=== PATIENT | female | born 1950 | race Asian ===

== ENCOUNTER 2016-08-24 18:53 | Inpatient (IN) | payer MEDICAID ==
[~2016-08-24] VITALS: Ht 152.4 cm; Wt 51.5 kg
[2016-08-24 21:22] LABS: BASOPHIL % 0.5 % (0-2); PLATELET COUNT 166 x10^3mcL (130-400); RED CELL DISTRIBUTION WIDTH 12.3 % (11.5-14.5)
[2016-08-24 21:36] LABS: CALCIUM 9.1 mg/dL (8.5-10.1); CARBON DIOXIDE 29.3 mmol/L (21-32); CREATININE SERUM 2.3 mg/dL (0.6-1.0); POTASSIUM SERUM 5.1 mmol/L (3.5-5.1)
[2016-08-24 21:40] LABS: BILIRUBIN TOTAL 0.32 mg/dL (0.20-1.00); PHOSPHOROUS 3.9 mg/dL (2.5-4.9); TOTAL PROTEIN, SERUM 7.1 g/dL (6.4-8.2); URIC ACID 8.4 mg/dL (2.6-6.0)
[2016-08-24 21:41] LABS: ALBUMIN 3.3 g/dL (3.4-5.0)
[2016-08-24 22:02] VITALS: BP 191/95
[2016-08-24 22:13] LABS: CHOLESTEROL/HDL RATIO 5.6; MAGNESIUM 2.1 mg/dL (1.8-2.4)
[2016-08-24 22:20] LABS: FREE T4 1.06 ng/dL (0.76-1.46); FREE THYROXINE INDEX 3.1 ug/dL (1.4-4.5)
[2016-08-24 22:21] LABS: T3 TOTAL 1.05 ng/mL
[2016-08-24 23:40] VITALS: BP 133/86
[2016-08-25 05:51] VITALS: BP 111/63
[2016-08-25 06:18] LABS: BASOPHIL % 0.5 % (0-2); PLATELET COUNT 152 x10^3mcL (130-400); RED CELL DISTRIBUTION WIDTH 12.4 % (11.5-14.5)
[2016-08-25 06:43] LABS: CALCIUM 8.7 mg/dL (8.5-10.1); CARBON DIOXIDE 28.7 mmol/L (21-32); CREATININE SERUM 2.3 mg/dL (0.6-1.0); POTASSIUM SERUM 4.5 mmol/L (3.5-5.1)
[2016-08-25 06:45] LABS: microscopic required? YES; urine erythrocyte 2+ (NEGATIVE)
[2016-08-25 06:51] LABS: AMPHETAMINE QUAL UR NONE DETECTED (NEG <=1000)
[2016-08-25 08:04] VITALS: Ht 152.4 cm; Wt 51.5 kg
[2016-08-25 09:54] VITALS: BP 155/74
[2016-08-25 14:10] VITALS: BP 116/65
[2016-08-25 17:24] VITALS: BP 102/66
[2016-08-25 20:24] VITALS: BP 147/85
[2016-08-26 06:23] VITALS: BP 120/72
[2016-08-26 06:47] LABS: BASOPHIL % 0.4 % (0-2); PLATELET COUNT 143 x10^3mcL (130-400); RED CELL DISTRIBUTION WIDTH 12.6 % (11.5-14.5)
[2016-08-26 07:10] LABS: CALCIUM 8.6 mg/dL (8.5-10.1); CARBON DIOXIDE 24.5 mmol/L (21-32); POTASSIUM SERUM 4.2 mmol/L (3.5-5.1)
[2016-08-26 10:28] VITALS: BP 110/73
[2016-08-26] MEDS ORDERED: THROAT DROPS6 MG MM (16:15)
[2016-08-26 16:21] VITALS: BP 110/73
[2016-08-26] MEDS ORDERED: AMOXICILLIN500 M1 PO (16:56)
[2016-08-26] MEDS ORDERED: BIAXIN FILMTAB500 MG PO (16:56)
[2016-08-26] MEDS ORDERED: GOOD SENSE OMEP20 MG PO (16:56)
== END 2016-08-26 18:00 | disposition home or self-care (01) | DRG 115 ==
LOC: ED 18:53 → MU 21:07 → DU 21:07 → MU 08-25 18:00
PROVIDERS: Emergency Medicine; Internal Medicine Gastroenterology; ADMIT Family Medicine
PROC: 0DC58ZZ Extirpation of Matter from Esophagus, Via Natural or Artificial Opening Endoscopic (ICD-10-PCS; principal; 2016-08-25 12:00)
PROC: 0DB68ZX Excision of Stomach, Via Natural or Artificial Opening Endoscopic, Diagnostic (ICD-10-PCS; 2016-08-25 12:00)
DX: T17.228A Food in pharynx causing other injury, initial encounter (principal); N17.0 Acute kidney failure with tubular necrosis; E44.0 Moderate protein-calorie malnutrition; K85.90 Acute pancreatitis without necrosis or infection, unspecified; K29.70 Gastritis, unspecified, without bleeding; B96.81 Helicobacter pylori [H. pylori] as the cause of diseases classified elsewhere; E78.5 Hyperlipidemia, unspecified; I16.0 Hypertensive urgency; M50.30 Other cervical disc degeneration, unspecified cervical region; J32.0 Chronic maxillary sinusitis; D64.9 Anemia, unspecified; F32.9 Major depressive disorder, single episode, unspecified; G47.00 Insomnia, unspecified; E03.9 Hypothyroidism, unspecified; Z68.22 Body mass index [BMI] 22.0-22.9, adult; X58.XXXA Exposure to other specified factors, initial encounter; Y92.001 Dining room of unspecified non-institutional (private) residence as the place of occurrence of the external cause
CPT/HCPCS: 43235; 82962; 83880; 84439; C9113; J1200; J1610; J1815; J2250; J2270; J2310; J2405; J3010; J3490; J7030; Q0092

== ENCOUNTER 2020-02-09 08:51 | Emergency (ER) | payer MEDICAID ==
[~2020-02-09] VITALS: Ht 152.4 cm; Wt 50.8 kg
[~2020-02-09 08:51] MED LIST: AMOXICILLIN500 M1 PO; BIAXIN FILMTAB500 MG PO; GOOD SENSE OMEP20 MG PO; THROAT DROPS6 MG MM
[2020-02-09 09:02] VITALS: BP 163/91; Ht 152.4 cm; Wt 50.8 kg
== END 2020-02-09 10:45 | disposition home or self-care (01) ==
LOC: ED 08:51
DX: L03.115 Cellulitis of right lower limb (principal); I10 Essential (primary) hypertension; E78.00 Pure hypercholesterolemia, unspecified; Z90.89 Acquired absence of other organs

== ENCOUNTER 2020-02-11 09:27 | Emergency (ER) | payer MEDICAID ==
[~2020-02-11] VITALS: Ht 144.8 cm; Wt 49.9 kg
[2020-02-11 10:18] VITALS: BP 155/74
== END 2020-02-11 10:18 | disposition home or self-care (01) ==
LOC: ED 09:27
DX: L03.115 Cellulitis of right lower limb (principal); E78.00 Pure hypercholesterolemia, unspecified; I10 Essential (primary) hypertension
CPT/HCPCS: 82962